=== PATIENT | male | born 1960 | race Asian ===

== ENCOUNTER 2020-02-24 21:47 | Emergency (ER) | payer MEDICARE, MEDICAID ==
[~2020-02-24] VITALS: Ht 180.3 cm; Wt 63.5 kg
[~2020-02-24 21:47] MED LIST: ACETAMINOPHEN650 M2 ORAL; ATIVAN1 MG ORAL; CALCIUM VIT D PO; CATAPRES0.1 MG ORAL; COLACE250 MG ORAL; FENOFIBRATE54 MG ORAL; FISH OIL CAP1000 MG ORAL; FLEET ENEMA133 ML RECTAL; GLIPIZIDE5 MG ORAL; IBUPROFEN600 MG ORAL; LANTUS SOL100 UNIT/1 SUBQ; LANTUS5 UNITS SUBQ; MOM30 ML ORAL; NORVASC5 MG ORAL; NOVOLOG100 UNIT/3 SUBQ; PROTONIX40 MG ORAL; SENNA8.6 M3 PO; dulcolax supp RC
[2020-02-24 21:50] VITALS: BP 132/80
--- NOTE | 2020-02-24 21:50 | NUR ---
ED Nurse Note: brought in by adam Montoya from [facility] d/t L upper arm shunt bleeding onset 2100 today. pt gets dialysis T, TH,S. Denies any other complaints or pain at this time.
--- NOTE | 2020-02-24 22:00 | NUR ---
ED Nurse Note: blood collected and sent to lab.
[2020-02-24 22:12] LABS: BASOPHILS % (AUTO) 2.3 % (0.0-2.0); EOSINOPHILS % (AUTO) 2.5 % (0.0-3.0); HEMATOCRIT 33.6 % (42.0-52.0); HEMOGLOBIN 10.9 G/DL (14.2-18.0); LYMPHOCYTES % (AUTO) 15.3 % (20.0-45.0); MEAN CORPUSCULAR VOLUME 104 FL (80-99); MONOCYTES % (AUTO) 18.8 % (1.0-10.0); NEUTROPHILS % (AUTO) 61.1 % (45.0-75.0); PLATELET COUNT 137 K/UL (150-450); RED BLOOD COUNT 3.22 M/UL (4.70-6.10); RED CELL DISTRIBUTION WIDTH 14.6 % (11.6-14.8); WHITE BLOOD COUNT 5.2 K/UL (4.8-10.8)
[2020-02-24 22:22] LABS: CALCIUM 8.7 MG/DL (8.5-10.1); CREATININE 5.6 MG/DL (0.55-1.30); POTASSIUM 3.7 MMOL/L (3.5-5.1)
[2020-02-24 22:26] LABS: INR 1.2 (0.9-1.1)
[2020-02-24 22:27] LABS: ALBUMIN 3.3 G/DL (3.4-5.0); ALBUMIN/GLOBULIN RATIO 0.7 (1.0-2.7); BILIRUBIN,TOTAL 0.7 MG/DL (0.2-1.0)
--- NOTE | 2020-02-24 22:40 | NUR ---
ED Nurse Note: ermd at bedside
--- NOTE | 2020-02-25 01:34 | Emergency Room Report ---
History of Present Illness General Chief Complaint: Upper Extremity Injury Present Illness HPI 59-year-old male with end-stage renal disease on dialysis here with bleeding dialysis fistula. Patient underwent his entire dialysis appointment earlier today and said that he went home and one spot from the dialysis access was continuously bleeding throughout the day on the left upper extremity. Denies any syncope, lightheadedness, any other complaints. Did not try anything other than direct pressure to stop the bleeding. Allergies: Coded Allergies: No Known Allergies (Unverified , 08/18/15) COVID-19 Screening Contact w/high risk pt: No Experienced COVID-19 symptoms?: No COVID-19 Testing performed [employer]: Yes - 02/18 COVID-19 Screening: Negative COVID-19 COVID-19 Testing Source: [facility] Nursing Documentation-[facility] Hx Hypertension: Yes Hx Diabetes: Yes Hx Gastrointestinal Problems: Yes - GERD Review of Systems All Other Systems: negative except mentioned in HPI Physical Exam Vital Signs Date Time Temp Pulse Resp B/P (MAP) Pulse Ox O2 Delivery O2 Flow Rate FiO2 02/24/20 21:47 99.0 88 18 156/85 (108) 99 Room Air Sp02 EP Interpretation: reviewed, normal General Appearance: no apparent distress, alert, GCS 15, non-toxic Head: normocephalic, atraumatic Eyes: bilateral eye normal inspection, bilateral eye PERRL ENT: hearing grossly normal, normal pharynx, no angioedema, normal voice Neck: full range of motion, supple/symm/no masses Respiratory: chest non-tender, lungs clear, normal breath sounds, speaking full sentences Cardiovascular #1: regular rate, rhythm, no edema, other - Left upper extremity AV fistula with palpable thrill. Punctate spot of active continuous bleeding on the proximal aspect of the left upper extremity AV fistula Cardiovascular #2: 2+ carotid (R), 2+ carotid (L), 2+ radial (R), 2+ radial (L), 2+ dorsalis pedis (R), 2+ dorsalis pedis (L) Gastrointestinal: normal bowel sounds, non tender, soft, non-distended, no guarding, no rebound Rectal: deferred Genitourinary: normal inspection, no CVA tenderness Musculoskeletal: back normal, normal range of motion, calf tenderness, gait/station normal, non-tender Neurologic: alert, motor strength/tone normal, oriented x3, sensory intact, responsive, speech normal Psychiatric: judgement/insight normal, memory normal, mood/affect normal, no suicidal/homicidal ideation Reflexes: 3+ bicep (R), 3+ bicep (L), 3+ tricep (R), 3+ tricep (L), 3+ knee (R), 3+ knee (L) Lymphatic: no adenopathy Medical Decision Making Diagnostic Impression: Primary Impression: Dialysis AV fistula malfunction Additional Impression: Hemorrhage of arteriovenous fistula ER Course Procedure: Bleeding AV fistula wound care Direct pressure with surrounding tourniquets and topical TXA. Direct pressure with Dermabond over bleeding fistula site Total critical care time: Approximately 25 minutes Due to a high probability of clinically significant, life threatening deterioration, the patient required the highest level of preparedness to intervene emergently and I personally spent this critical care time directly and personally managing the patient. This critical care time included obtaining a history, examining the patient, pulse oximetry, ordering and reviewing studies, ordering treatments, evaluating response to treatment and updating management plan as needed, frequent reassessment and discussion with other providers as well as arranging for ultimate disposition. This critical to care time was performed to assess and manage the high probability of life-threatening deterioration that could result in multiorgan failure. This critical care time is separate from the separately billable procedures and treating other patients. Laboratory Tests Test 02/24/20 21:55 White Blood Count 5.2 K/UL (4.8-10.8) Red Blood Count 3.22 M/UL (4.70-6.10) L Hemoglobin 10.9 G/DL (14.2-18.0) L Hematocrit 33.6 % (42.0-52.0) L Mean Corpuscular Volume 104 FL (80-99) H Mean Corpuscular Hemoglobin 33.8 PG (27.0-31.0) H Mean Corpuscular Hemoglobin Concent 32.4 G/DL (32.0-36.0) Red Cell Distribution Width 14.6 % (11.6-14.8) Platelet Count 137 K/UL (150-450) L Mean Platelet Volume 7.7 FL (6.5-10.1) Neutrophils (%) (Auto) 61.1 % (45.0-75.0) Lymphocytes (%) (Auto) 15.3 % (20.0-45.0) L Monocytes (%) (Auto) 18.8 % (1.0-10.0) H Eosinophils (%) (Auto) 2.5 % (0.0-3.0) Basophils (%) (Auto) 2.3 % (0.0-2.0) H Prothrombin Time 12.6 SEC (9.30-11.50) H Prothrombin Time INR 1.2 (0.9-1.1) H Activated Partial Thromboplast Time 32 SEC (23-33) Sodium Level 140 MMOL/L (136-145) Potassium Level 3.7 MMOL/L (3.5-5.1) Chloride Level 98 MMOL/L (98-107) Carbon Dioxide Level 34 MMOL/L (21-32) H Anion Gap 8 mmol/L (5-15) Blood Urea Nitrogen 27 mg/dL (7-18) H Creatinine 5.6 MG/DL (0.55-1.30) H Estimated Glomerular Filtration Rate 10.5 mL/min (>60) Glucose Level 152 MG/DL (74-106) H Calcium Level 8.7 MG/DL (8.5-10.1) Total Bilirubin 0.7 MG/DL (0.2-1.0) Aspartate Amino Transferase (AST) 46 U/L (15-37) H Alanine Aminotransferase (ALT) 36 U/L (12-78) Alkaline Phosphatase 43 U/L (46-116) L Total Protein 8.3 G/DL (6.4-8.2) H Albumin 3.3 G/DL (3.4-5.0) L Globulin 5.0 g/dL Albumin/Globulin Ratio 0.7 (1.0-2.7) L EKG: NSR, no ischemia, intervals WNL. No ectopy Rhythm strip: patient monitored for arrhythmias - no malignant dysrhythmias, runs of PVCs, nor pauses noted 59-year-old male here with bleeding left upper extremity dialysis fistula. Patient was hemodynamically stable and ambulating throughout the emergency department throughout his entire stay. The bleeding point from the dialysis fistula was successfully resolved using topical Dermabond. Patient was observed in the emergency department for several hours after the Dermabond was placed and he had no more episodes of acute bleeding. Hemoglobin was 10.5, however patient exhibited no evidence whatsoever of hemodynamic compromise. He was requesting to leave and go back to his [facility]. Patient discharged in stable condition via ambulance. Last Vital Signs Date Time Temp Pulse Resp B/P (MAP) Pulse Ox O2 Delivery O2 Flow Rate FiO2 02/24/20 21:50 98.7 78 18 132/80 99 Room Air Disposition: HOME, SELF-CARE Condition: Stable Patient Instructions: AV Fistula Placement, Care After, Vascular Access for Hemodialysis Winston Marrero M.D. Feb 25, 2020 01:33
[2020-02-25 02:00] VITALS: BP 139/89
--- NOTE | 2020-02-25 02:05 | NUR ---
ED Nurse Note: spoke with jordyn from [facility], states patient is going to room 13-c
[2020-02-25 02:25] VITALS: BP 139/89
--- NOTE | 2020-02-25 02:25 | NUR ---
ER DISCHARGE NOTE: Patient is cleared to be discharged per ERMD, pt is aox4, on room air, with stable vital signs. pt was given dc and prescription instructions, pt was able to verbalize understanding, pt id band and iv site removed without complications. pt dc via [facility] in stable condition. facility aware of patient return.
--- NOTE | 2020-02-25 15:44 | Cardiology Report ---
APPROVED REPORT EKG Measurement Heart [id number] <Conclusion> Normal sinus rhythm Possible Left atrial enlargement T wave abnormality, consider inferior ischemia Prolonged QT Abnormal ECG
== END 2020-02-25 02:25 | disposition home or self-care (01) ==
LOC: EDBD 21:47 → EMR 22:02
DX: T82.49XA Other complication of vascular dialysis catheter, initial encounter (principal); T82.838A Hemorrhage due to vascular prosthetic devices, implants and grafts, initial encounter; E11.22 Type 2 diabetes mellitus with diabetic chronic kidney disease; I12.0 Hypertensive chronic kidney disease with stage 5 chronic kidney disease or end stage renal disease; N18.6 End stage renal disease; Z99.2 Dependence on renal dialysis; K21.9 Gastro-esophageal reflux disease without esophagitis
CPT/HCPCS: 36415; 80053; 85025; 85610; 85730; 86850; 86900; 86901; 93005; 99285